=== PATIENT | female | born 1930 | race Caucasian/White ===

== ENCOUNTER → 2017-07-03 | Outpatient (CLI) | payer OTHER ==
[~2017-07-03] MED LIST: ADVAIR HFA120 INHALA IH; ASPIR 8181 M1 PO; AZITHROMYCIN500 M1 PO; Aspirin Chewable PO; DUONEB 2.5-0.5 M3 ML AEROSOL; GABAPENTIN100 MG PO; Halfprin PO; INCRUSE ELLI62.5 MCG IH; LEVOTHYROXINE75 MCG PO; Lopressor PO; METOPROLOL TART25 MG PO; METOPROLOL TART50 MG PO; MONOPRIL10 MG PO; MOTRIN400 MG PO; MUCINEX600 MG PO; Monopril PO; NEURONTIN100 MG PO; Normodyne,Trandate PO; PREDNISONE10 MG PO; PREDNISONE5 MG PO; Protonix PO; Proventil,Ventolin H IH; SIMVASTATIN20 MG PO; SKELAXIN800 MG PO; SPIRIVA RESPIMAT4 GM IH; SPIRIVA1 INHALATI IH; SPIRIVA18 MCG IH; SYMBICORT60 INHALAT IH; TRAMADOL HCL50 MG PO; TYLENOL EXTRA500 MG PO; ULTRAM50 MG PO; VENTOLIN HFA18 GM IH; Vicodin,Norco 5/325 PO; Zocor PO
[2017-07-03 08:17] LABS: HEMATOCRIT 41.1 % (36.0-46.0); MCH 30.2 PG (29.0-34.0); MCHC 31.6 G/DL (30.0-36.0); MCV 95.4 FL (83-99); PLATELET COUNT 169 K/uL (156-360); RBC DIS.WIDTH-CV 13.9 % (11.8-14.6); RED BLOOD COUNT 4.31 M/uL (3.80-5.20); WHITE BLOOD COUNT 6.3 K/uL (4.1-10.2)
[2017-07-03 08:31] LABS: INTER. NORMALIZED RATIO 1.1
[2017-07-03 08:34] LABS: PTT 29.9 SEC (25-37)
== END | disposition home or self-care (01) ==
LOC: OPR 07:27 → EDSTATUS 08:00 → OPR 08:00
PROVIDERS: Internal Medicine Pulmonary Disease
DX: C34.12 Malignant neoplasm of upper lobe, left bronchus or lung (principal); E03.9 Hypothyroidism, unspecified; I10 Essential (primary) hypertension; E78.5 Hyperlipidemia, unspecified; J44.9 Chronic obstructive pulmonary disease, unspecified; Z86.711 Personal history of pulmonary embolism; Z85.118 Personal history of other malignant neoplasm of bronchus and lung; Z87.891 Personal history of nicotine dependence; Z79.82 Long term (current) use of aspirin
CPT/HCPCS: 71045; 77012; 85027; 85610; 85730; 88305; 88341 TC; 88342 TC; J3010